=== PATIENT | female | born 1940 | race Caucasian/White ===

== ENCOUNTER 2017-05-08 12:13 | Observation (INO) | payer MEDICARE, BC ==
[~2017-05-08] VITALS: Ht 156.2 cm; Wt 61.2 kg
--- NOTE | ~2017-05-08 | EKG ---
PATIENT: HAM OVIEDO UNIT #: [id number] Ventricular Rate: 63 BPM Atrial Rate: 63 BPM P-R Interval: 212 ms QRS Duration: 88 ms Q-T Interval: 432 ms QTC Calculation(Bezet): 442 ms P [place]: 11 degrees Calculated R [place]: 48 degrees Calculated T [place]: 43 degrees Diagnosis Line: Sinus rhythm with 1st degree A-V block Diagnosis Line: Otherwise normal ECG Diagnosis Line: When compared with ECG of 03-OCT-2016 11:19, Diagnosis Line: No significant change was found Diagnosis Line: Confirmed by EDWARD OMER MD ([id number]) on 05/08/2017 Diagnosis Line: 6:57:07 PM INTERPRETING MD: NEGRA ZALDIVAR
--- NOTE | ~2017-05-08 | HP ---
Unit #: [id number] #: [id number] Patient: HAM OVIEDO [id number] [facility]. [place], [place] [address] [id number] MR#: [id number] NAME: HAM OVIEDO ROOM: CIC3 Age: 76 Sex: F Admission Date: 05/08/2017 : 1940 Attending Physician: Alexi Be M.D. Primary Care Physician: Brice Butler M.D. HISTORY AND PHYSICAL HISTORY OF PRESENT ILLNESS This is a 76-year-old white female who is well known to Dr. Be. She has a history of multiple stents placed in the past few years since 2009 and this past September she had laser atherectomy of the mid LAD, ostium of the diagonal branch of the LAD and also the RCA. Patient's EF was normal. Her last echo showed LVEF of 65% to 70%. She is a diabetic, hypertension, hyperlipidemia, has sleep apnea. She also has a history of breast cancer and is status post mastectomy. Patient returned to the hospital after having recurrent chest pains. She describes it as a heavy pushing-type pressure under her bilateral breasts. She said then her left arm has been feeling heavy and when she has the chest pain it is also throbbing and becomes numb and tingly. She denies any diaphoresis but she says she feels a little short of air at times and she got a little nauseated but no vomiting. She said it can be exertional or nonexertional. It has waxed and waned. It can happen at any time. She said two nights ago it woke her up a couple of times. She has taken nitroglycerin a few times and it eases off for a little while but then recurs. She says this has been progressively worsening, especially the last past week. She denies any recent travel. No cough, fever or chills. In the emergency room the patient's blood pressure was 154/72, heart rate 68, respirations 18. She is afebrile. O2 sat was 99% on room air. Her initial cardiac enzymes are negative. Her EKG does not show anything acute. The patient was given aspirin 325 along with put on nitrate. Patient will be admitted for further evaluation and workup. PAST MEDICAL HISTORY 1. History of coronary artery disease, 2009 had PCI and stent in the first marginal branch of the left circumflex. 2. In 2012 had PCI and stent in the mid LAD, RCA and the first diagonal. 3. In 2015 had status post PCI and stents in the mid RCA. 4. 09/2016 had successful laser atherectomy of the mid LAD, ostium of the diagonal branch of the LAD and the RCA by Dr. Cassandra weber at [facility]. 5. In 2010 2D echo, LVEF of 65% to 70%, grade I diastolic dysfunction, mild tricuspid regurgitation. 6. Diabetes mellitus type 2. 7. Hypertension. 8. Hyperlipidemia. 9. History of breast carcinoma, status post mastectomy. 10. Osteoarthritis. 11. Restless leg syndrome. 12. Sleep apnea. Unit #: [id number] #: [id number] Patient: HAM OVIEDO 13. Reformed smoker. 14. Chronic back pain and gets epidural injections. PAST SURGICAL HISTORY 1. Mastectomy for breast cancer with reconstructive surgery. 2. Multiple PCIs and stents. See details above. 3. Appendectomy. 4. Cataract extraction. 5. Tonsillectomy. 6. Tubal ligation. 7. Partial colectomy. 8. Cholecystectomy. 9. Knee surgery. 10. Appendectomy. HOME MEDICATIONS 1. Imdur ER 60 mg p.o. daily. 2. Flomax 0.4 mg p.o. daily. 3. Metoprolol 50 mg p.o. daily. 4. Prilosec 40 mg p.o. daily. 5. Lipitor 40 mg p.o. daily. 6. Celexa 40 mg p.o. daily. 7. Lortab 7.5/325 one tablet p.o. b.i.d. p.r.n. 8. Glucophage 500 mg p.o. b.i.d. 9. Losartan and hydrochlorothiazide 50/12.5 one tablet p.o. daily. 10. Aspirin 81 mg p.o. daily. 11. Plavix 75 mg daily. Last does Friday morning. She plans on having an epidural injection for chronic back pain. ALLERGIES Sulfonamides. SOCIAL HISTORY Patient quit smoking 25 years ago. No illicit drug or alcohol use. She stays fairly active. FAMILY HISTORY Her mother had bypass surgery. She has a brother who has heart disease. REVIEW OF SYSTEMS CONSTITUTIONAL: Denies fever or chills. No recent weight gain or weight loss. HEENT: Denies headache or dizziness. No visual or hearing changes. No lymphadenopathy or thyromegaly. No difficulty swallowing. CARDIOVASCULAR: Chest pain present. Denies palpitations. Denies increased lower extremity edema. PULMONARY: Slight shortness of breath with the chest pain. Denies paroxysmal nocturnal dyspnea or orthopnea. GASTROINTESTINAL: Denies nausea, vomiting, diarrhea or abdominal pain. NEUROLOGICAL: No focal weakness. PHYSICAL EXAMINATION GENERAL: On exam Miss Oviedo is a 76-year-old white female in no acute respiratory distress. She is awake, alert and oriented. VITAL SIGNS: Blood pressure is 144/80, heart rate 60, respiration 18, temperature 97.2, O2 sats 96% on room air. NECK: Trachea midline. No thyromegaly or lymphadenopathy. Normal carotid upstrokes. No jugular venous distention. Unit #: [id number] #: [id number] Patient: HAM OVIEDO HEART: S1, S2, regular rate and rhythm. No clicks, murmurs or rubs. LUNGS: Bilaterally clear throughout. No wheezes, rales or rhonchi. ABDOMEN: Soft, nontender, positive bowel sounds present. No hepatosplenomegaly. EXTREMITIES: Pedal pulses are palpable. No pedal edema. DIAGNOSTIC STUDIES LABORATORY: Glucose 89, BUN 15, creatinine 0.8, eGFR is 72.2, sodium 138, potassium 4.1, chloride 99, CO2 29, calcium is 9.4, total protein 8.1, albumin 4.8, total bilirubin 0.4, AST 23, ALT 23, alkaline phosphatase is 77. A fasting lipid profile: Cholesterol 136, triglycerides 216, LDL is 52, HDL is 41. WBC is 6.0, hemoglobin 13.4, hematocrit 39.4 and platelets of 220. Initial cardiac enzymes: CK-MB is less than 1.0 and troponin is less than 0.05, CK-MB is less than 1.0 and troponin less than 0.05. Repeat cardiac enzymes this morning CK total is 28, troponin less than 0.03. INR is 1.0. IMAGING: Chest x-ray shows negative except for tortuous aorta. CARDIOVASCULAR: EKG shows normal sinus rhythm with ventricular rate 66 beats per minute, first-degree AV block, no ischemia. IMPRESSION 1. Chest pain. 2. History of coronary artery disease, multiple percutaneous coronary interventions and stents and recent, 09/2016, successful laser atherectomy of the mid left anterior descending, ostium of the diagonal branch of the left anterior descending, and the right coronary artery. 3. Hypertension. 4. Hyperlipidemia. 5. Diabetes mellitus type 2. 6. Reformed smoker. 7. History of breast cancer. Previous mastectomy with reconstructive surgery. PLAN 1. Patient will be admitted for further evaluation and management. The patient's symptoms may be somewhat atypical. However, with her multiple medical comorbidities and known severe coronary artery disease it is likely it is equivalent to angina and in lieu of that it is really sometimes with nitrates. 2. Dr. Be had a long discussion with the patient. He wants to take her to the [facility] to reevaluate her stents and her arteries. 3. Discussed with patient the risks and benefits including risk of bleeding, myocardial infarction, stroke and even . The patient verbalizes understanding and agrees to proceed. 4. Obtain a fasting lipid profile and evaluate. 5. Continue the patient on beta hans, statin, nitrate. Hold Plavix until after the heart catheterization but continue aspirin and she is on a one-time dose of Lovenox. 6. Dr. Be had a long discussion with the patient and explained risks and benefits including risk of bleeding, myocardial infarction, stoke and even . Patient verbalizes understanding and wants to proceed. Unit #: [id number] #: [id number] Patient: HAM OVIEDO Dictated by Lary Goodwin A.P.R.N. for Cristian Rosario/ann TD: 05/09/2017 21:12 JOB #: [id number] HISTORY AND PHYSICAL Page 1 of 1 X Lary Goodwin APRN HISTORY AND PHYSICAL
--- NOTE | ~2017-05-08 | CR72 ---
[facility] A Service of [facility] & [facility] RADIOLOGY TEXT RESULTS PATIENT: HAM OVIEDO LOCATION: [facility] CICCU3-13 : 41 UNIT #: [id number] AGE: [address]: Alexi Be MD SEX: F ORDER DR: [id number] [facility] [address] [facility]. [place], [place] [address] [id number] MR#: [id number] Acc #: [id number] NAME: HAM OVIEDO : 1940 SEX: F STUDY DATE/TIME: 05/08/2017 16:18 UNIT: [id number] ROOM: [facility] STUDY DESCRIPTION: CR Chest Single View Portable Attending Physician: Alexi Be M.D. Ordering Physician: Ed Hamlet Jin M.D. Primary Care Physician: Brice Butler M.D. MEDICAL IMAGING REPORT This report is preliminary unless electronic signature is present EXAM Portable chest HISTORY Midsternal chest pain radiating toward the left arm for the past 2 days. Additional history of breast cancer. TECHNIQUE Single AP view of the chest was obtained and compared with 10/09/2016. FINDINGS The aorta is tortuous. Heart size is normal. Both lungs are clear with normal vascular markings and no pleural fluid is seen. IMPRESSION Negative chest except for tortuous aorta. Dictated by... Álvaro Recinos M.D. THIS IS AN ELECTRONICALLY VERIFIED REPORT Álvaro Recinos M.D. at 05/13/2017 2:13 PM RLF/psc TD: 05/09/2017 04:09 JOB #: [id number] MEDICAL IMAGING REPORT Page 1 of 1 COPY
[~2017-05-08 12:13] MED LIST: ASPIRIN PO; ASPIRIN81 M1 PO; ASPIRIN81 M2 PO; ASPIRIN81 MG PO; AVALIDE 300-12.1 TAB; BAYER CHEWABLE81 MG PO; BLOOD THINNER; CELEXA PO; CELEXA20 MG PO; CENTRUM SILVER PO; CEPHALEXIN500 M1 PO; CITALOPRAM HBR40 M1 PO; CLOPIDOGREL75 MG PO; DIOVAN HCT 160-1 TAB PO; DIOVAN HCT 160/1 TAB PO; DIOVAN HCT 1601 EACH PO; DIOVAN PO; DIOVAN40 MG PO; DOK100 MG PO; EFFIENT10 MG PO; FAMCICLOVIR500 MG PO; FAMOTIDINE PO; GLUCOPHAGE500 M1 PO; HEARTBURN150 MG PO; HYDROCODON-ACE1 EAC7 PO; IBUPROFEN PO; LEVAQUIN750 MG PO; LIPITOR80 MG PO; LISINOPRIL20 MG PO; LOPID600 MG PO; LOPRESSOR PO; LOSARTAN POTASS50 MG PO; METFORMIN HCL500 M1 PO; METFORMIN PO; METOPROLOL TART25 MG PO; NAPROXEN PO; NEXIUM PO; NITROGLYGERIN0.4 MG SL; NITROLINGUAL SPRAY IH; NITROSTAT0.4 MG SL; NORCO 5/325 TAB1 TAB PO; NORVASC2.5 MG PO; OMEPRAZOLE20 M2 PO; PRAVASTATIN SOD20 MG PO; PRAVASTATIN SOD40 MG PO; SIMVASTATIN40 MG PO; SIMVASTATIN80 MG PO; TICLID250 MG PO; TOPROL XL PO; VALSARTAN-HCTZ1 EAC1 PO; VICODIN 5/1 TAB 5/50 PO; WALGREENS PHARMACY; ZOCOR PO
[2017-05-08 14:25] LABS: BASOPHIL# 0.1 X10e3 (0-0.3); EOSINOPHIL# 0.2 X10e3 (0-0.7); EOSINOPHIL% 3.9 % (0.0-7.0); HEMATOCRIT 41.8 % (35.0-45.0); HEMOGLOBIN 13.9 gm/dL (12.0-16.0); LYMPHOCYTE# 1.7 X10e3 (1.0-3.5); MEAN CELL VOLUME 86.4 FL (83-96); MEAN CORPUSCULAR HEMOGLOBIN 28.7 PG (28-34); MEAN CORPUSCULAR HGB CONC 33.2 g/dL (30-36); MEAN PLATELET VOLUME 8.3 FL (6.5-11.5); MONOCYTE# 0.4 X10e3 (0-1.0); MONOCYTE% 6.8 % (3.0-12.0); NEUTROPHIL# 3.4 X10e3 (1.5-7.1); NEUTROPHIL% 59.3 % (40-75); PLATELET COUNT 255 X10e3 (140-420); RED BLOOD COUNT 4.84 X10e (3.90-5.30); RED CELL DISTRIBUTION WIDTH 16.8 % (11.0-15.5); WHITE BLOOD COUNT 5.8 X10e3 (4.0-10.5)
[2017-05-08 14:28] LABS: DIFF IND NO
[2017-05-08 14:35] LABS: POC - CKMB <1.0 ng/mL (0.0-7.9); POC - TROPONIN <0.05 ng/mL (<=0.05)
[2017-05-08 14:55] LABS: ALBUMIN SERUM 4.8 g/dL (3.5-5.0); BILIRUBIN, DIRECT 0.1 mg/dL (0.0-0.2); BILIRUBIN,INDIRECT 0.3 mg/dL (0.0-0.9); BILIRUBIN,TOTAL 0.4 mg/dL (0.2-2.0); BUN/CREATININE RATIO 17.77; CREATININE SERUM 0.9 mg/dL (0.6-1.4); GLOM FILT RATE Estimated 62.6 mL/min (>60); POTASSIUM 4.1 mmol/L (3.5-5.1); PROTEIN TOTAL SERUM 8.1 g/dL (6.0-8.3)
[2017-05-08] MEDS ORDERED: IMDUR PO (16:33)
[2017-05-08] MEDS ORDERED: PATIENT'S PHARMACY (16:33)
[2017-05-08] MEDS ORDERED: LIPITOR PO (16:34)
[2017-05-08] MEDS ORDERED: PRILOSEC PO (16:34)
[2017-05-08] MEDS ORDERED: LOPRESSOR PO (16:34)
[2017-05-08] MEDS ORDERED: CITALOPRAM HBR40 MG PO (16:34)
[2017-05-08] MEDS ORDERED: FLOMAX0.4 M1 PO (16:34)
[2017-05-08] MEDS ORDERED: LOSARTAN-HCTZ1 EACH PO (16:35)
[2017-05-08] MEDS ORDERED: METFORMIN PO (16:35)
[2017-05-08] MEDS ORDERED: CLOPIDOGREL75 MG PO (16:35)
[2017-05-08] MEDS ORDERED: LORTAB 7.5-3251 EACH PO (16:35)
[2017-05-08] MEDS ORDERED: REQUIP1 MG PO (16:35)
[2017-05-08 16:41] LABS: POC - CKMB <1.0 ng/mL (0.0-7.9); POC - TROPONIN <0.05 ng/mL (<=0.05)
[2017-05-08] MEDS ORDERED: OMEPRAZOLE40 M1 PO (20:33)
[2017-05-09 02:29] LABS: CK TOTAL 28 IU/L (26-140)
[2017-05-09 06:18] LABS: BASOPHIL# 0.1 X10e3 (0-0.3); BASOPHIL% 0.9 % (0-2.5); EOSINOPHIL# 0.3 X10e3 (0-0.7); EOSINOPHIL% 4.6 % (0.0-7.0); HEMATOCRIT 39.4 % (35.0-45.0); HEMOGLOBIN 13.4 gm/dL (12.0-16.0); LYMPHOCYTE# 2.2 X10e3 (1.0-3.5); LYMPHOCYTE% 35.6 % (17.0-45.0); MEAN CELL VOLUME 86.2 FL (83-96); MEAN CORPUSCULAR HEMOGLOBIN 29.3 PG (28-34); MEAN PLATELET VOLUME 8.5 FL (6.5-11.5); MONOCYTE# 0.5 X10e3 (0-1.0); MONOCYTE% 7.5 % (3.0-12.0); NEUTROPHIL# 3.1 X10e3 (1.5-7.1); NEUTROPHIL% 51.4 % (40-75); RED BLOOD COUNT 4.57 X10e (3.90-5.30)
[2017-05-09 06:28] LABS: DIFF IND NO
[2017-05-09 06:34] LABS: PLATELET COUNT 220 X10e3 (140-420)
[2017-05-09 07:37] LABS: BUN/CREATININE RATIO 18.75; CALCIUM SERUM 9.4 mg/dL (8.4-10.2); CREATININE SERUM 0.8 mg/dL (0.6-1.4); GLOM FILT RATE Estimated 72.2 mL/min (>60); POTASSIUM 4.1 mmol/L (3.5-5.1)
[2017-05-09 08:43] LABS: CHOLESTEROL 136 mg/dL (0-200); HDL CHOLESTEROL 41 mg/dL (35-95); LDL CHOLESTEROL 52 mg/dL ([, -130]); LDL/HDL RATIO 1 RATIO (0-4); TRIGLYCERIDES 216 mg/dL (10-160)
[2017-05-09 15:22] LABS: CK TOTAL 29 IU/L (26-140)
== END 2017-05-09 15:04 ==
LOC: CED 12:13 → CEDOF 20:00 → CED 20:29 → C5C 21:28 → CEDOF 21:28 → C5B 21:39 → C5C 21:39 → CICCU3 05-09 10:39 → C5B 05-09 10:39 → CICCU3 05-09 15:04
PROVIDERS: Emergency Medicine; Internal Medicine Cardiovascular Disease
DX: I25.110 Atherosclerotic heart disease of native coronary artery with unstable angina pectoris (principal); Z95.5 Presence of coronary angioplasty implant and graft; I77.1 Stricture of artery; I10 Essential (primary) hypertension; E78.5 Hyperlipidemia, unspecified; E11.9 Type 2 diabetes mellitus without complications; Z79.84 Long term (current) use of oral hypoglycemic drugs; M19.90 Unspecified osteoarthritis, unspecified site; G47.30 Sleep apnea, unspecified; G25.81 Restless legs syndrome; Z79.82 Long term (current) use of aspirin; Z79.02 Long term (current) use of antithrombotics/antiplatelets; Z87.891 Personal history of nicotine dependence; Z85.3 Personal history of malignant neoplasm of breast; Z82.49 Family history of ischemic heart disease and other diseases of the circulatory system; Z90.12 Acquired absence of left breast and nipple; Z98.890 Other specified postprocedural states; Z98.51 Tubal ligation status; Z88.0 Allergy status to penicillin; Z88.2 Allergy status to sulfonamides; Z88.5 Allergy status to narcotic agent
CPT/HCPCS: 36415; 71010; 80048; 80061; 80076; 82550; 82553; 84484; 85025; 85610; 93005; 99152; 99153; 99285; C1769; C1887; G0378; J1644; J2250; J2270; J3010